=== PATIENT | female | born 1965 | race Caucasian/White ===

== ENCOUNTER 2016-05-19 08:08 | Day surgery (SDC) | payer OTHER ==
[2016-05-16 15:47] VITALS: BMI 28.7
[~2016-05-19] VITALS: Ht 160 cm; Wt 74.0 kg
[2016-05-19] VITALS (16 sets, daily range): BP systolic 117–139; BP diastolic 73–83; PULSE 64–78; RESP 12–19; Ht 160 cm; Wt 74.0 kg
[~2016-05-19 08:08] MED LIST: BACTDS PO; LISI20TA11 PO; ONDA4TAB35 PO
[2016-05-19] MEDS ORDERED: HYD25 PO (09:15)
[2016-05-19] MEDS ORDERED: BUSP10TA2 PO (09:15)
[2016-05-19] MEDS ORDERED: LORA-186 PO (09:15)
[2016-05-19] MEDS ORDERED: hydrALAzine 20 MG INJ IV PRN (10:00)
[2016-05-19] MEDS ORDERED: DIPHENHYDRAMINE 50 MG INJ IV PRN (10:00)
[2016-05-19] MEDS ORDERED: morphine (1 MG/ML) 10ML SYRINGE IV PRN ×3 (10:00)
[2016-05-19] MEDS ORDERED: MEPERIDINE 25 MG INJ IV PRN (10:00)
[2016-05-19] MEDS ORDERED: ONDANSETRON 4 MG INJ IV PRN (10:00)
[2016-05-19] MEDS ORDERED: LIDOCAINE 2% (MDV) 20 ML INJ ONE (10:06)
[2016-05-19] MEDS ORDERED: BUPIVACAINE 0.5% (SDV) 30 ML INJ ONE ×2 (10:07→11:24)
--- NOTE | 2016-05-19 10:07 | HPN ---
Date/Time of Note Date/Time of Note DATE: 05/19/16 TIME: 10:07 Interval H&P Admission Note Pt. seen H&P reviewed: No system changes JIMY LEVI DPM May 19, 2016 10:07
[2016-05-19] MEDS ORDERED: MIDAZOLAM 1 MG/ML 2 ML INJ ONE ×2 (10:16→11:15)
[2016-05-19] MEDS ORDERED: PROPOFOL 20 ML ONE (10:16)
[2016-05-19] MEDS ORDERED: FENTAnyl 50 MCG/ML VIAL ONE (10:16)
[2016-05-19] MEDS ORDERED: CEFAZOLIN 1 GM INJ ONE (10:21)
[2016-05-19] MEDS ORDERED: PROPOFOL 100 ML ONE (11:15)
[2016-05-19] MEDS ORDERED: LIDOCAINE 2% (MDV) 20 ML INJ INJ ONE (11:46)
[2016-05-19] MEDS ORDERED: BUPIVACAINE 0.5% (MPF) 30 ML INJ EPI ONE (11:46)
[2016-05-19] MEDS ORDERED: POLYMYXIN/BACITRACIN 1L IRRIG IRR ONE (11:46)
[2016-05-19] MEDS ORDERED: BUPIVACAINE 0.5% 30 ML VIAL INJ ONE ×2 (11:46)
--- NOTE | 2016-05-19 13:02 | RADRPT ---
PROCEDURE: Intraoperative imaging of the right foot with fluoroscopy. CLINICAL INDICATION: Right foot pain. Intraoperative. TECHNIQUE: 11 images of the right foot were obtained in the operating room with an image intensifi er. No radiologist was in attendance. 18 seconds of fluoroscopy time was used. COMPARISON: No prior study is available for comparison. FINDINGS: Images demonstrate surgical instruments overlying the inferior calcaneus. IMPRESSION: 1. Intraoperative imaging of the posterior right foot. RPTAT: QQ .Olivier Castro MD, MD Date Time Electronically viewed and signed by .Olivier Castro MD, MD on 05/19/2016 13:02 .R/
--- NOTE | 2016-05-19 13:03 | RADRPT ---
PROCEDURE: XR Right Foot. CLINICAL INDICATION: Right foot pain. Post removal of foreign body. TECHNIQUE: Three views. Frontal, lateral, and oblique. COMPARISON: None. FINDINGS: There is no fracture or dislocation. The soft tissues are normal. Articular surfaces are intact. There is no lytic or blastic lesion. There is no radiopaque foreign body. IMPRESSION: 1. Normal images of the right foot. 2. No radiopaque foreign body. RPTAT: QQ .Olivier Castro MD, Date Time Electronically viewed and signed by .Olivier Castro MD, on 05/19/2016 13:03 .R/
== END 2016-05-19 13:50 | disposition home or self-care (01) ==
LOC: SDS 08:08
PROVIDERS: ATTEND Podiatrist Foot & Ankle Surgery
DX: M79.5 Residual foreign body in soft tissue (principal); I10 Essential (primary) hypertension
CPT/HCPCS: 28190; 73630; 84703; 88304; J0690; J2250; J3010; L3260; Z7512; Z7610

== ENCOUNTER 2017-05-01 11:08 | Day surgery (SDC) | END 2017-05-01 15:03 | disposition home or self-care (01) ==